=== PATIENT | female | born 1985 | race Caucasian/White ===

== ENCOUNTER 2022-02-06 16:31 | Emergency (ER) | payer OTHER ==
[~2022-02-06] VITALS: Ht 172 cm; Wt 63.5 kg
[2022-02-06 16:39] VITALS: BP 118/90
--- NOTE | 2022-02-06 16:43 | ED Upper Extremity ---
General Stated Complaint: RIGHT PALM AND FINGERS LAC History of Present Illness Date Seen by Provider: Feb 06, 2022 Time Seen by Provider: 16:38 Initial Comments 36 y/o female presents today with c/o laceration to palm and index finger of right hand. Pt states she was opening a can and cut the hand on the edge of the can. She reports her Tdap vaccine is uptodate. She denies any other injuries. Onset: just prior to arrival Pain/Injury Location: right hand, right 2nd finger Method of Injury: other (cut on metal food can) Modifying Factors: Worse With Movement Allergies and Home Medications Patient Home Medication List Home Medication List Reviewed: Yes Review of Systems Constitutional: no symptoms reported Musculoskeletal: no symptoms reported Skin: other (laceration to right hand) Physical Exam Vital Signs Vital Signs - First Documented 02/06/22 16:39 Temp 36.0 Pulse 78 Resp 20 B/P (MAP) 118/90 (99) Pulse Ox 97 O2 Delivery Room Air Capillary Refill : Height, Weight, BMI Height: '" Weight: lbs. oz. kg; BMI Method: General Appearance: WD/WN, no apparent distress Wrist: Yes normal inspection, Yes no evidence of injury, Yes normal ROM Hand: normal ROM, abrasions (right index finger), laceration (1.5cm superficial laceration to palm of right hand) Neurologic/Tendon: normal sensation, normal motor functions, normal tendon functions, responds to pain Neurologic/Psychiatric: no motor/sensory deficits, alert, normal mood/affect, oriented x 3 Skin: normal color, warm/dry Progress/Results/Core Measures Results/Orders Vital Signs/I&O 02/06/22 16:39 Temp 36.0 Pulse 78 Resp 20 B/P (MAP) 118/90 (99) Pulse Ox 97 O2 Delivery Room Air Progress Progress Note : Progress Note wounds cleansed with water and hibiclens, they are all very superficial--skin glue applied to laceration. Dressed with elastic bandaid. Departure Impression Primary Impression: Laceration of right hand Additional Impression: Abrasion of right index finger Disposition: 01 HOME, SELF-CARE Condition: Stable Departure-Patient Inst. Decision time for Depature: 16:50 Referrals: NO,LOCAL PHYSICIAN (PCP/Family) Primary Care Physician Add. Discharge Instructions: Keep clean and dry. Do not pick skin glue off--it will eventually come off on it's own. Tylenol and motrin as needed. Monitor for any signs of infection. Follow up if any problems arise. GHAZALA ALEXANDER [employer] Feb 06, 2022 16:43
== END 2022-02-06 16:55 | disposition home or self-care (01) ==
LOC: ER 16:35
DX: S61.411A Laceration without foreign body of right hand, initial encounter (principal); S60.410A Abrasion of right index finger, initial encounter; W26.8XXA Contact with other sharp object(s), not elsewhere classified, initial encounter
CPT/HCPCS: 99282